=== PATIENT | female | born 1975 | race African-American/Black ===

== ENCOUNTER → 2018-01-01 | Day surgery (SDC) | payer OTHER ==
--- NOTE | 2018-01-02 14:24 | PATH ---
Surgical Pathology Report Patient Name: ALLAN PLUNKETT [facility]. Rec. #: [id number] /Age/Gender: 1975 (Age: 42) / F Account: [id number] Location: [facility] Taken: 01/01/2018 Received: 01/01/2018 Reported: 01/02/2018 Physicians: Thanh Camp Specimen(s) Received A: LEFT BREAST SPECIMEN WITH CALCIFICATIONS B: LEFT BREAST SPECIMEN WITHOUT CALCIFICATIONS Clinical History Nonpalpable lesion Mammographic findings: Microcalcification, suspicious Final Diagnosis A. BREAST, LEFT, WITH CALCIFICATIONS, STEREOTACTIC BIOPSY: BENIGN BREAST TISSUE SHOWING FIBROCYSTIC CHANGES INCLUDING MICROCYST FORMATION WITH APOCRINE METAPLASIA, STROMAL FIBROSIS AND CALCIFICATIONS IN ASSOCIATION WITH CYST CONTENTS. B. BREAST, LEFT, WITHOUT CALCIFICATIONS, STEREOTACTIC BIOPSY: BENIGN BREAST TISSUE SHOWING FIBROCYSTIC CHANGES INCLUDING MICROCYST FORMATION WITH APOCRINE METAPLASIA AND STROMAL FIBROSIS. Electronically Signed Gail Pham M.D. Gross Description A. Received in formalin labeled "left breast with calcifications," are 4 hendrix-yellow, cylindrical portions of fibroadipose tissue ranging from 1.0-1.5 cm in length and averaging 0.3 cm in diameter. The specimens are submitted in toto in one cassette. B. Received in formalin labeled "left breast without calcifications," are 4 hendrix-yellow, cylindrical portions of fibroadipose tissue ranging from 1.5-2.0 cm in length and averaging 0.3 cm in diameter. The specimens are submitted in toto in one cassette. Time to formalin fixation: 5 minutes Total formalin fixation time: Approximately 6 hours. 01/01/2018 [facility]01/01/2018
== END | disposition home or self-care (01) ==
LOC: FMAMMOTONE 12:05
PROVIDERS: ATTEND Nurse Practitioner Family
PROC: 0HBU3ZX Excision of Left Breast, Percutaneous Approach, Diagnostic (ICD-10-PCS; principal; 2018-01-01)
DX: N60.12 Diffuse cystic mastopathy of left breast (principal); N60.32 Fibrosclerosis of left breast; N64.89 Other specified disorders of breast; R92.1 Mammographic calcification found on diagnostic imaging of breast
CPT/HCPCS: 19081; 87899; 88305-TC; A4648